=== PATIENT | female | born 1975 | race African-American/Black ===

== ENCOUNTER 2017-07-11 07:17 | Emergency (ER) | payer MEDICAID ==
[~2017-07-11] VITALS: Ht 165.1 cm; Wt 83.0 kg
[2017-07-11] MEDS ORDERED: METHOCARBAMOL 500MG TABLET PO ONE (08:45)
[2017-07-11] MEDS ORDERED: KETOROLAC 30MG/ML VIAL IM ONE (08:45)
[2017-07-11 14:30] VITALS: BP 100/79
== END 2017-07-11 14:41 | disposition home or self-care (01) ==
LOC: ER 07:29
DX: M25.552 Pain in left hip (principal)
CPT/HCPCS: 73502; 81025; 93971; 96372; 99284; J1885